=== PATIENT | male | born 2000 | race Hispanic/Latino ===

== ENCOUNTER 2021-08-11 09:54 | Inpatient (IN) | payer SELFPAY ==
[~2021-08-11 09:54] MED LIST: Iopamidol-370 76% 500 ML 1 ML ONE
[2021-08-11 11:02] LABS: #Lymphocytes 1.8 thou/uL (1.20-3.40); #Neutrophils 16.2 thou/uL (1.40-6.50); %Basophils 0.1 % (0.0-1.0); %Eosinophils 0.1 % (0.0-10.0); %Lymphocytes 9.4 % (21.0-51.0); %Monocytes 5.1 % (0.0-10.0); %Neutrophils 85.3 % (42.0-75.0); Hemoglobin 15.3 g/dL (14.0-18.0); Mean Corpuscular HGB CONC 33.1 g/dL (32.0-36.0); Mean Corpuscular Volume 90.8 fL (78.0-98.0); Mean Platelet Volume 7.4 fL (7.4-10.4); Platelet Count 364 thou/uL (130-400); RBC Distribution Width 11.8 % (11.5-14.5); Red Blood Cell (RBC) Count 5.09 mill/uL (4.70-6.10)
[2021-08-11 11:20] LABS: Chloride 109 mmol/L (98-107); Potassium 4.3 mmol/L (3.5-5.1); Sodium 139 mmol/L (136-145)
[2021-08-11 11:21] LABS: ALT (SGPT) 48 U/L (8-55); AST (SGOT) 18 U/L (5-34); Albumin 3.9 g/dL (3.5-5.0); Alkaline Phosphatase 56 U/L (40-110); Anion Gap 11 mmol/L (10-20); BUN (Urea Nitrogen) 14 mg/dL (8.9-20.6); Bilirubin, Total 0.5 mg/dL (0.2-1.2); Calc. Creatinine Clearance 0 mL/min (70-130); Calcium 9.3 mg/dL (7.8-10.44); Carbon Dioxide 23 mmol/L (22-29); Globulin 3.6 g/dL (2.4-3.5); Glucose 106 mg/dL (70-105); Protein, Total 7.5 g/dL (6.0-8.3)
[2021-08-11] MEDS ORDERED: Clindamycin/D5W 900 mg/50 ml Premix Bag ONE (12:23)
[2021-08-11] MEDS ORDERED: Dexamethasone 10 MG/ML VIAL ONE (12:32)
[2021-08-11 12:59] LABS: Hemoglobin A1c 5.3 % (4.0-6.0)
[2021-08-11 13:15] VITALS: BMI 37.4
[2021-08-11] MEDS: Ampicillin/Sulbactam 3 GM in Sodium Chloride 0.9% 100 ML IVPB SCH ×2 (15:43→23:26)
[2021-08-11 20:39] LABS: SARS-CoV-2 PCR by NAA Not Detected (NotDetected)
[2021-08-11] MEDS: Clindamycin/D5W 900 MG in Premix Bag 1 BAG IVPB SCH (21:07)
[2021-08-11] MEDS: Morphine 4 MG/ML VIAL SLOW IVP PRN (23:34)
[2021-08-12] MEDS: Ampicillin/Sulbactam 3 GM in Sodium Chloride 0.9% 100 ML IVPB SCH ×4 (03:53→20:37)
[2021-08-12] MEDS: Clindamycin/D5W 900 MG in Premix Bag 1 BAG IVPB SCH ×3 (05:00→20:05)
[2021-08-12 06:18] LABS: #Lymphocytes 1.6 thou/uL (1.20-3.40); #Monocytes 1.3 thou/uL (0.11-0.59); #Neutrophils 13.5 thou/uL (1.40-6.50); %Eosinophils 0.2 % (0.0-10.0); %Lymphocytes 9.8 % (21.0-51.0); %Monocytes 7.6 % (0.0-10.0); %Neutrophils 82.4 % (42.0-75.0); Hemoglobin 14.6 g/dL (14.0-18.0); Mean Corpuscular HGB CONC 33.4 g/dL (32.0-36.0); Mean Corpuscular Hemoglobin 31.2 pg (27.0-31.0); Mean Corpuscular Volume 93.5 fL (78.0-98.0); Platelet Count 323 thou/uL (130-400); RBC Distribution Width 11.8 % (11.5-14.5); Red Blood Cell (RBC) Count 4.66 mill/uL (4.70-6.10); White Blood Cell (WBC) Count 16.4 thou/uL (4.8-10.8)
[2021-08-12 06:35] LABS: Anion Gap 10 mmol/L (10-20); BUN (Urea Nitrogen) 16 mg/dL (8.9-20.6); Calc. Creatinine Clearance 243 mL/min (70-130); Calcium 8.9 mg/dL (7.8-10.44); Carbon Dioxide 24 mmol/L (22-29); Chloride 111 mmol/L (98-107); Glucose 164 mg/dL (70-105); Potassium 4.4 mmol/L (3.5-5.1); Sodium 141 mmol/L (136-145)
[2021-08-12] MEDS: Morphine 4 MG/ML VIAL SLOW IVP PRN (18:14)
[2021-08-13] MEDS: Ampicillin/Sulbactam 3 GM in Sodium Chloride 0.9% 100 ML IVPB SCH ×4 (03:02→20:25)
[2021-08-13] MEDS: Clindamycin/D5W 900 MG in Premix Bag 1 BAG IVPB SCH ×2 (03:35→12:44)
[2021-08-13 06:43] LABS: #Eosinphils 0.2 thou/uL (0.0-0.7); #Lymphocytes 4.9 thou/uL (1.20-3.40); #Monocytes 1.3 thou/uL (0.11-0.59); #Neutrophils 8.1 thou/uL (1.40-6.50); %Basophils 0.3 % (0.0-1.0); %Lymphocytes 33.6 % (21.0-51.0); %Monocytes 8.6 % (0.0-10.0); %Neutrophils 56.4 % (42.0-75.0); Hemoglobin 14.1 g/dL (14.0-18.0); Mean Corpuscular HGB CONC 32.1 g/dL (32.0-36.0); Mean Corpuscular Volume 93.4 fL (78.0-98.0); Mean Platelet Volume 7.5 fL (7.4-10.4); Platelet Count 340 thou/uL (130-400); Red Blood Cell (RBC) Count 4.68 mill/uL (4.70-6.10); White Blood Cell (WBC) Count 14.4 thou/uL (4.8-10.8)
[2021-08-13] MEDS ORDERED: Lidocaine 1% w/Epinephrine 1:100K 30 ML VIAL ONE (09:27)
[2021-08-13] MEDS ORDERED: AFRIN NASAL MIST 15 ML BOT ONE ×2 (09:27→09:38)
[2021-08-13] MEDS ORDERED: SUGAMMADEX SODIUM 200 MG/2 ML VIAL ONE (09:41)
[2021-08-13] MEDS ORDERED: Famotidine/PF 20 mg/2ml Vial ONE (09:41)
[2021-08-13] MEDS ORDERED: Fentanyl 100 MCG/2 ML VIAL ONE ×2 (09:41→12:10)
[2021-08-13] MEDS ORDERED: Metoclopramide HCl 10 MG/2 ML VIAL ONE (10:05)
[2021-08-13] MEDS ORDERED: Rocuronium Bromide 10 MG/ML (10ML VIAL) ONE (10:05)
[2021-08-13] MEDS ORDERED: PROPOFOL 200 MG/20 ML VIAL ONE (10:05)
[2021-08-13] MEDS ORDERED: Lidocaine 1% PF 5 ML VIAL ONE (10:05)
[2021-08-13] MEDS ORDERED: Glycopyrrolate 0.2 MG/ML 5 ML SYRINGE ONE (10:05)
[2021-08-13] MEDS ORDERED: Ondansetron PF 4 MG/2 ML Vial ONE (10:05)
[2021-08-13] MEDS ORDERED: methylPREDNISolone Acetate 40 mg/ml Vial ONE (10:16)
[2021-08-13] MEDS ORDERED: Bacitracin Zinc Ointment 30 gm TUBE ONE (11:10)
[2021-08-13] MEDS ORDERED: Meperidine HCl/PF 25 MG/ML VIAL SLOW IVP PRN (12:11)
[2021-08-13] MEDS ORDERED: Ketorolac Tromethamine 30 MG/ML VIAL IVP PRN (12:11)
[2021-08-13] MEDS ORDERED: Promethazine HCl 25 MG/ML VIAL IVPB PRN (12:11)
[2021-08-13] MEDS ORDERED: Promethazine HCl 25 MG/ML VIAL IM PRN (12:11)
[2021-08-13] MEDS ORDERED: Ondansetron HCl/PF 4 MG/2 ML Vial IVP PRN (12:11)
[2021-08-13] MEDS ORDERED: Ondansetron PF 4 MG/2 ML Vial SLOW IVP PRN (14:56)
[2021-08-13] MEDS ORDERED: HYDROcodone/Acetaminophen 5/325 mg Tablet PO PRN (14:58)
[2021-08-13] MEDS ORDERED: Sodium Chloride 0.45% 1,000 ML IV SCH (15:00)
[2021-08-13] MEDS: Morphine 4 MG/ML VIAL SLOW IVP PRN ×2 (15:09→23:53)
[2021-08-13] MEDS: Sodium Chloride 0.65% Nasal 44 ML BOT EA NARE SCH ×2 (18:13→20:18)
[2021-08-13] MEDS: VANCOMYCIN 2 GRAM/400 ML BAG 2 GM in Premix Bag 1 BAG IVPB SCH (18:14)
[2021-08-14] MEDS: VANCOMYCIN 2 GRAM/400 ML BAG 2 GM in Premix Bag 1 BAG IVPB SCH ×2 (00:04→09:35)
[2021-08-14] MEDS: Ampicillin/Sulbactam 3 GM in Sodium Chloride 0.9% 100 ML IVPB SCH ×3 (03:35→14:50)
[2021-08-14] MEDS: Sodium Chloride 0.65% Nasal 44 ML BOT EA NARE SCH ×3 (03:35→14:50)
[2021-08-14 06:21] LABS: #Basophils 0.1 thou/uL (0.0-0.2); #Eosinphils 0.2 thou/uL (0.0-0.7); #Lymphocytes 4.6 thou/uL (1.20-3.40); #Monocytes 1.1 thou/uL (0.11-0.59); %Basophils 0.7 % (0.0-1.0); %Eosinophils 1.6 % (0.0-10.0); %Lymphocytes 30.3 % (21.0-51.0); %Monocytes 7.4 % (0.0-10.0); Hemoglobin 13.6 g/dL (14.0-18.0); Mean Corpuscular HGB CONC 32.8 g/dL (32.0-36.0); Mean Corpuscular Hemoglobin 30.5 pg (27.0-31.0); Mean Corpuscular Volume 92.7 fL (78.0-98.0); Mean Platelet Volume 7.4 fL (7.4-10.4); Platelet Count 325 thou/uL (130-400); RBC Distribution Width 11.8 % (11.5-14.5); Red Blood Cell (RBC) Count 4.46 mill/uL (4.70-6.10); White Blood Cell (WBC) Count 15.1 thou/uL (4.8-10.8)
[2021-08-14 06:47] LABS: ALT (SGPT) 39 U/L (8-55); AST (SGOT) 13 U/L (5-34); Albumin 3.5 g/dL (3.5-5.0); Alkaline Phosphatase 50 U/L (40-110); Anion Gap 10 mmol/L (10-20); BUN (Urea Nitrogen) 12 mg/dL (8.9-20.6); Bilirubin, Total 0.5 mg/dL (0.2-1.2); Calc. Creatinine Clearance 199 mL/min (70-130); Calcium 8.7 mg/dL (7.8-10.44); Carbon Dioxide 28 mmol/L (22-29); Chloride 102 mmol/L (98-107); Globulin 3.1 g/dL (2.4-3.5); Glucose 85 mg/dL (70-105); Potassium 4.4 mmol/L (3.5-5.1); Protein, Total 6.6 g/dL (6.0-8.3); Sodium 136 mmol/L (136-145)
[2021-08-14 08:12] VITALS: TEMP 98.4
[2021-08-14] MEDS ORDERED: Polyethylene Glycol 3350 17 GM Packet PO SCH ×2 (10:05→10:15)
[2021-08-14 12:47] VITALS: BP 157/87
[2021-08-15] MEDS ORDERED: Polyethylene Glycol 3350 17 GM Packet PO SCH (09:00)
[2021-08-17 10:36] LABS: Fungus Stain Final report (.)
[2021-09-11 17:13] LABS: Fungus Culture Final report (.)
== END 2021-08-14 16:16 | disposition home or self-care (01) | DRG 145 ==
LOC: ERS 09:54 → T4-A 11:20
PROVIDERS: ADMIT Student in an Organized Health Care Education/Training Program; ATTEND Student in an Organized Health Care Education/Training Program
PROC: 09BV8ZZ Excision of Left Ethmoid Sinus, Via Natural or Artificial Opening Endoscopic (ICD-10-PCS; principal; 2021-08-13)
PROC: 09BL8ZZ Excision of Nasal Turbinate, Via Natural or Artificial Opening Endoscopic (ICD-10-PCS; 2021-08-13)
PROC: 09BU8ZZ Excision of Right Ethmoid Sinus, Via Natural or Artificial Opening Endoscopic (ICD-10-PCS; 2021-08-13)
PROC: 099R8ZZ Drainage of Left Maxillary Sinus, Via Natural or Artificial Opening Endoscopic (ICD-10-PCS; 2021-08-13)
PROC: 099Q8ZZ Drainage of Right Maxillary Sinus, Via Natural or Artificial Opening Endoscopic (ICD-10-PCS; 2021-08-13)
PROC: 09JY8ZZ Inspection of Sinus, Via Natural or Artificial Opening Endoscopic (ICD-10-PCS; 2021-08-13)
PROC: 8E09XBZ Computer Assisted Procedure of Head and Neck Region (ICD-10-PCS; 2021-08-13)
DX: J32.9 Chronic sinusitis, unspecified (principal); I10 Essential (primary) hypertension; E66.9 Obesity, unspecified; J32.4 Chronic pansinusitis; Z20.822 Contact with and (suspected) exposure to COVID-19; Z91.013 Allergy to seafood; Z91.018 Allergy to other foods; Z90.49 Acquired absence of other specified parts of digestive tract; Z98.890 Other specified postprocedural states; Z68.37 Body mass index [BMI] 37.0-37.9, adult; J30.89 Other allergic rhinitis; J34.89 Other specified disorders of nose and nasal sinuses; J34.3 Hypertrophy of nasal turbinates; J33.9 Nasal polyp, unspecified
CPT/HCPCS: 36415; 80048; 80053; 83036; 85025; 87070; 87076; 87102; 87205; 87206; 96374; 96375; C2625; J0295; J1100; J2270; J2405; J2704; J2765; J2920; J3010; J3370; J3490; Q9967; S0028; U0003; U0005

== ENCOUNTER 2021-10-30 12:18 | Day surgery (SDC) | payer OTHER ==
[2021-10-28 10:47] VITALS: BMI 36.6
[2021-10-30] MEDS ORDERED: Oxymetazoline HCl 0.05% (30 ML BOT) ONE ×2 (13:41→14:14)
[2021-10-30] MEDS ORDERED: Lidocaine 1% w/Epinephrine 1:100K 20 ML VIAL ONE ×2 (14:14→14:58)
[2021-10-30] MEDS ORDERED: Bacitracin Zinc Ointment 30 gm TUBE ONE (14:14)
[2021-10-30] MEDS ORDERED: EPINEPHrine 1 MG/ML AMP ONE (14:58)
[2021-10-30] MEDS ORDERED: Dexmedetomidine 200 MCG/2 ML VIAL ONE (16:12)
[2021-10-30] MEDS ORDERED: PROPOFOL 200 MG/20 ML VIAL ONE (16:14)
[2021-10-30] MEDS ORDERED: ePHEDrine 50 MG/ML VIAL ONE (16:14)
[2021-10-30] MEDS ORDERED: Lidocaine 1% PF 5 ML VIAL ONE (16:14)
[2021-10-30] MEDS ORDERED: Rocuronium Bromide 10 MG/ML (10ML VIAL) ONE (16:14)
[2021-10-30] MEDS ORDERED: Glycopyrrolate 0.2 MG/ML 5 ML SYRINGE ONE (16:14)
[2021-10-30] MEDS ORDERED: Dexamethasone 20 MG/5 ML VIAL ONE (16:14)
[2021-10-30] MEDS ORDERED: SUGAMMADEX SODIUM 200 MG/2 ML VIAL ONE (16:44)
[2021-10-30] MEDS ORDERED: Triamcinolone 40 MG/ML VIAL ONE (17:08)
[2021-10-30] MEDS ORDERED: Nitroglycerin 0.4 MG TAB (25 Tab Bottle) ONE (18:12)
[2021-10-30] MEDS ORDERED: HYDROcodone/Acetaminophen 5/325 mg Tablet ONE ×2 (18:12→18:13)
== END 2021-10-30 18:44 | disposition home or self-care (01) ==
LOC: SDC 12:18
PROVIDERS: ATTEND Specialist
PROC: 09BT8ZZ Excision of Left Frontal Sinus, Via Natural or Artificial Opening Endoscopic (ICD-10-PCS; principal; 2021-10-30)
PROC: 09BS8ZZ Excision of Right Frontal Sinus, Via Natural or Artificial Opening Endoscopic (ICD-10-PCS; principal; 2021-10-30)
PROC: 099X8ZZ Drainage of Left Sphenoid Sinus, Via Natural or Artificial Opening Endoscopic (ICD-10-PCS; principal; 2021-10-30)
PROC: 09TV8ZZ Resection of Left Ethmoid Sinus, Via Natural or Artificial Opening Endoscopic (ICD-10-PCS; principal; 2021-10-30)
PROC: 099R8ZZ Drainage of Left Maxillary Sinus, Via Natural or Artificial Opening Endoscopic (ICD-10-PCS; principal; 2021-10-30)
PROC: 8E09XBZ Computer Assisted Procedure of Head and Neck Region (ICD-10-PCS; principal; 2021-10-30)
DX: J32.1 Chronic frontal sinusitis (principal); L03.213 Periorbital cellulitis; J34.89 Other specified disorders of nose and nasal sinuses; Z91.013 Allergy to seafood; Z91.018 Allergy to other foods
CPT/HCPCS: J0171; J1100; J2704; J3301; J3490